=== PATIENT | female | born 1980 | race Caucasian/White ===

== ENCOUNTER 2017-10-24 23:50 | Emergency (ER) | payer MEDICAID, OTHER ==
[~2017-10-24] VITALS: Ht 157.5 cm; Wt 72.6 kg
[2017-10-25] MEDS ORDERED: metroNIDAZOLE 500 MG (FLAGYL) TAB PO STA (01:59)
[2017-10-25] MEDS ORDERED: AZITHROMYCIN 250 MG TAB (ZITHROMAX) PO STA (01:59)
[2017-10-25] MEDS ORDERED: RX-HYDROCODONE/APAP 5/325 MG #4 TAB PK PO PRN (02:00)
[2017-10-25] MEDS ORDERED: LIDOCAINE 1% INJ 20 ML (XYLOCAINE) VIAL INJ ONE (02:00)
[2017-10-25] MEDS ORDERED: cefTRIAXone 250 MG (ROCEPHIN) VIAL IM ONE (02:00)
--- NOTE | 2017-10-25 02:07 | ED GU-Female ---
General Chief Complaint: -Female Stated Complaint: ABD & PELVIC PAIN Nursing Triage Note: PT PRESENTS TO ER WITH COMPLAINT OF VAGINAL BURNING. STATES SHE HAS HAD HERPES SINCE SHE WAS 19. WAS SEEN AT [facility] ON FRIDAY. Nursing Sepsis Screen: No Definite Risk Source: patient Exam Limitations: no limitations History of Present Illness Date Seen by Provider: Oct 25, 2017 Time Seen by Provider: 01:50 Initial Comments Here with report of vaginal pain that has been going on for a few days. She was seen at the walk-in clinic yesterday and started on medications for possible herpes outbreak. She has had herpes since 19. She also admits to recently using Velez hair removal product and having sexual activity afterwards and thinks that she may have had some irritation from that. She reports foul- smelling discharge as well as labial swelling and pain. Reports pain with urination. Denies nausea or vomiting. She has been soaking in the bathtub or shower to help with urination. Timing/Duration: week, getting worse Severity/Quality: moderate, aching, burning Location: vaginal Radiation: none Activities at Onset: sexual activity Prior Genitourinary Problems: none Sexual [place] History: less than 2 months ago, single partner Modifying Factors: Worsens With Defecating, Worsens With Urinating Associated Symptoms: No abdominal pain, No fever/chills, No nausea/vomiting Allergies and Home Medications Allergies Coded Allergies: No Known Drug Allergies (Unverified , 10/25/17) Home Medications Cephalexin 500 Mg Tablet, 500 MG PO BID Prescribed by: JAYDEN REYES on 10/25/17222 Hydrocodone Bit/Acetaminophen 1 Tab Tab, 1-2 EACH PO Q6H PRN for PAIN-MODERATE Prescribed by: JAYDEN REYES on 10/25/17213 Metformin HCl 500 Mg Tablet, 500 MG PO BID Prescribed by: JAYDEN REYES on 10/25/17218 Metronidazole 500 Mg Tablet, 500 MG PO BID Prescribed by: JAYDEN REYES on 10/25/17213 Patient Home Medication List Home Medication List Reviewed: Yes Constitutional: see HPI, No chills, No fever Respiratory: no symptoms reported Cardiovascular: no symptoms reported Gastrointestinal: no symptoms reported Genitourinary: see HPI, burning, discharge, dysuria : No Musculoskeletal: no symptoms reported Skin: lesions, other (redness and swelling of vaginal area) Past Vooxalh-Eegpux-Pybemu Hx Patient Social History Alcohol Use: Occasionally Uses Recreational Drug Use: No Smoking Status: Never a Smoker Recent Foreign Travel: No Contact w/Someone Who Travel: No Recent Infectious Disease Expo: No Surgeries History of Surgeries: Yes Surgeries: Section Respiratory History of Respiratory Disorde: No Cardiovascular History of Cardiac Disorders: No Neurological History of Neurological Disord: No Genitourinary History of Genitourinary Disor: No Gastrointestinal History of Gastrointestinal Di: No Musculoskeletal History of Musculoskeletal Dis: No HEENT History of HEENT Disorders: No Reviewed Nursing Assessment Reviewed/Agree w Nursing PMH: Yes Family Medical History Significant Family History: No Pertinent Family Hx Physical Exam Vital Signs Vital Signs - First Documented 10/25/17 01:35 Temp 96.8 Pulse 106 Resp 20 B/P (MAP) 131/86 (101) Pulse Ox 98 O2 Delivery Room Air Capillary Refill : Less Than 3 Seconds General Appearance: WD/WN, no apparent distress HEENT: PERRL/EOMI, pharynx normal Neck: full range of motion, supple Cardiovascular: regular rate, rhythm, no murmur Respiratory: lungs clear, normal breath sounds Gastrointestinal: non tender, soft Pelvic: discharge, other (labial swollen bilateral but worse on the right. Foul-smelling discharge noted. They via red and inflamed and tender to the touch. Unable to perform further evaluation due to pain.) Neurologic/Psychiatric: alert, oriented x 3 Skin: warm/dry, other (perivaginal erythema) Progress/Results/Core Measures Suspected Sepsis Recent Fever Within 48 Hours: No Infection Criteria Present: None New/Unexplained Altered Menta: No Sepsis Screen: No Definite Risk Sepsis Diagnosis: SIRS Temperature:96.8 Pulse: 106 Respiratory Rate: 20 Blood Pressure 131 /86 Mean: 101 Results/Orders Lab Results Laboratory Tests Test 10/25/17 02:00 10/25/17 02:13 Range/Units Urine Color YELLOW Urine Clarity VERY CLOUDY H Urine pH 5 5-9 Urine Specific [place] 1.025 H 1.016-1.022 Urine Protein 2+ H NEGATIVE Urine Glucose (UA) 4+ H NEGATIVE Urine Ketones 4+ H NEGATIVE Urine Nitrite POSITIVE H NEGATIVE Urine Bilirubin NEGATIVE NEGATIVE Urine Urobilinogen NORMAL NORMAL MG/DL Urine Leukocyte Esterase 3+ H NEGATIVE Urine RBC (Auto) 5+ H NEGATIVE Urine RBC 10-25 H /HPF Urine WBC 50-100 H /HPF Urine Squamous Epithelial Cells 10-25 H /HPF Urine Crystals NONE /LPF Urine Bacteria MODERATE H /HPF Urine Casts NONE /LPF Urine Mucus NEGATIVE /LPF Urine Culture Indicated YES Glucometer 322 H 70-110 MG/DL My Orders Orders - JAYDEN REYES MD Alen Dna Urine Test (10/25/17 01:57) Chlamydia Dna (10/25/17 01:57) Rx-Hydrocodone/Apap 5-325 Mg (Rx-Vicodin (10/25/17 02:00) Ua Culture If Indicated (10/25/17 01:57) Ceftriaxone Injection (Rocephin Injectio (10/25/17 02:00) Azithromycin Tablet (Zithromax Tablet) (10/25/17 01:59) Metronidazole Tablet (Flagyl Tablet) (10/25/17 01:59) Lidocaine 1% Injection (Xylocaine 1% Inj (10/25/17 02:00) Lidocaine 1% (Xylocaine 1%) (10/25/17 02:14) Urine Culture (10/25/17 02:00) Medications Given in ED Current Medications Medications Dose Ordered Sig/[place] Route Start Time Stop Time Status Last Admin Dose Admin Acetaminophen/ Hydrocodone Bitart 1 ea Q4H PRN PO 10/25/17 02:00 10/25/17 02:23 1 EA Ceftriaxone Sodium 250 mg ONCE ONCE IM 10/25/17 02:00 10/25/17 02:02 DC 10/25/17 02:23 250 MG Lidocaine HCl 0.9 ml ONCE ONCE INJ 10/25/17 02:00 10/25/17 02:02 DC 10/25/17 02:23 0.9 ML Vital Signs/I&O Vital Sign - Last 12Hours 10/25/17 01:35 Temp 96.8 Pulse 106 Resp 20 B/P (MAP) 131/86 (101) Pulse Ox 98 O2 Delivery Room Air Capillary Refill : Less Than 3 Seconds Blood Pressure Mean: 101 Progress Note : Progress Note Seen and evaluated. UA with DNA screen for chlamydia and gonorrhea. Flagyl 500 mg by mouth, Zithromax 1 g by mouth and Rocephin 250 mg IM ordered. Go pack of hydrocodone ordered. We will continue outpatient Flagyl and prescription for hydrocodone. Departure Impression Impression: Primary Impression: Vaginitis Qualified Codes: N76.0 - Acute vaginitis Additional Impression: Urinary tract infection Qualified Codes: N30.00 - Acute cystitis without hematuria Disposition: 01 HOME, SELF-CARE Condition: Stable Departure-Patient Inst. Decision time for Depature: 02:11 Referrals: [facility] (PCP) Primary Care Physician NELSON COVARRUBIAS APRN (Family) Primary Care Physician Patient Instructions: Bacterial Vaginosis (DC), Vaginitis, Urinary Tract Infection, Adult (DC) Add. Discharge Instructions: All discharge instructions reviewed with patient and/or family. Voiced understanding. Take medications as directed. You may take ibuprofen 800 mg every 8 hours as needed for pain but do not exceed this dose. If you are not taking the prescribed pain medicine you may take acetaminophen 1000 mg every 8 hours but do not take both as both have acetaminophen in them. Do not exceed 4000 mg of acetaminophen in a 24-hour period. Follow-up with your Dr. in a few days for recheck. Return for worse pain, fever, vomiting, weakness, breathing problems or other concerns as needed. Scripts Cephalexin (Cephalexin) 500 Mg Tablet 500 MG PO BID, #10 TAB 0 Refills Prov: JAYDEN REYES MD 10/25/17 Metformin HCl (Metformin HCl) 500 Mg Tablet 500 MG PO BID, #60 TAB Prov: JAYDEN REYES MD 10/25/17 Metronidazole (Metronidazole) 500 Mg Tablet 500 MG PO BID, #14 TAB 0 Refills Prov: JAYDEN REYES MD 10/25/17 Hydrocodone Bit/Acetaminophen (Hydrocodone/Acetaminophen 5/325mg Tablet) 1 Tab Tab 1-2 EACH PO Q6H Y for PAIN-MODERATE, #15 TAB 0 Refills Prov: JAYDEN REYES MD 10/25/17 JAYDEN REYES MD Oct 25, 2017 02:07
[2017-10-25 02:13] LABS: BILIRUBIN,URINE NEGATIVE (NEGATIVE); CLARITY,URINE VERY CLOUDY; COLOR,URINE YELLOW; GLUCOSE, URINE (UA) 4+ (NEGATIVE); KETONES,URINE 4+ (NEGATIVE); LEUKOCYTE ESTERASE ,URINE 3+ (NEGATIVE); NITRITE,URINE POSITIVE (NEGATIVE); PH,URINE 5 (5-9); PROTEIN,URINE 2+ (NEGATIVE); UROBILINOGEN,URINE NORMAL (NORMAL)
[2017-10-25] MEDS ORDERED: ACHD5005 PO (02:14)
[2017-10-25] MEDS ORDERED: LIDOCAINE 1% INJ 50 ML (XYLOCAINE) VIAL ONE (02:14)
[2017-10-25] MEDS ORDERED: METR500T21 PO (02:14)
[2017-10-25] MEDS ORDERED: METF500T4 PO (02:19)
[2017-10-25 02:20] LABS: BACTERIA,URINE MODERATE /HPF; WBC,URINE 50-100 /HPF
[2017-10-25] MEDS ORDERED: CEPH500T PO (02:23)
[2017-10-25 02:48] VITALS: BP 131/86
== END 2017-10-25 02:48 | disposition home or self-care (01) ==
LOC: EDUNIT# 23:50 → ER 23:54
DX: N76.0 Acute vaginitis (principal); N39.0 Urinary tract infection, site not specified; Z87.59 Personal history of other complications of pregnancy, childbirth and the puerperium
CPT/HCPCS: 36415; 81000; 82962; 87088; 87186; 87491; 87591; 96372; 99284

== ENCOUNTER 2019-06-01 07:39 | Emergency (ER) | payer MEDICAID ==
[~2019-06-01] VITALS: Ht 152.4 cm; Wt 68.2 kg
[~2019-06-01 07:39] MED LIST: ACHD5005 PO; CEPH500T PO; METF-397 PO; METR-145 PO
--- NOTE | 2019-06-01 08:20 | NUR ---
CIRA WAS SEEN WALKING TO WATING ROOM PATIENT VOICED THAT SHE WAS GETTING SOMETHING TO DRINK INFORMED NOT TO DRINK TILL DR SAW HER. KEPT WALKING TO WATING ROOM WAS SEEN GOING TO POP MACHINE TO GET SOMETHING TO DRINK.
[2019-06-01] MEDS ORDERED: HYDROcodone/APAP 7.5 MG/325 MG (LORTAB, LORCET PLUS) TABLET PO STA (08:50)
--- NOTE | 2019-06-01 09:20 | ED GU-Female ---
General Chief Complaint: CERTIFIED HISTOLOGIC TECHNICIAN Stated Complaint: BROWN VAG DISCHARGE;ITCHING/BURNING Nursing Triage Note: AMB TO ROOM C/O VAG ITCHING ,DISCHARGE WITH PAINFUL BUMP . IS DOING SELF TX FOR YEAST INFECTION. Nursing Sepsis Screen: No Definite Risk Source: patient Exam Limitations: no limitations History of Present Illness Date Seen by Provider: Jun 01, 2019 Time Seen by Provider: 08:45 Initial Comments Here with report of vaginal swelling, itching and pain that has been going on for a couple of days. She thought this may be a yeast infection and did try the [id number] Monistat cream and has not had improvement. Sexual activity last weekend with no problems with tried a few days ago and it was painful. Reports that she has a fall but actually she is quite swollen overall. Does hurt with urination. Timing/Duration: getting worse, other (to 3 days) Severity/Quality: moderate, severe, aching, burning Location: vaginal Radiation: none Activities at Onset: none Sexual [place] History: less than 2 months ago, single partner Modifying Factors: Worsens With Urinating Associated Symptoms: dysuria; No fever/chills, No nausea/vomiting Allergies and Home Medications Allergies Coded Allergies: No Known Drug Allergies (Unverified , 10/25/17) Home Medications Metformin HCl 500 Mg Tablet, 500 MG PO BID Prescribed by: JAYDEN REYES on 10/25/17218 Metronidazole 500 Mg Tablet, 500 MG PO BID Prescribed by: JAYDEN REYES on 10/25/17213 Patient Home Medication List Home Medication List Reviewed: Yes Review of Systems Review of Systems Constitutional: see HPI; No chills, No fever EENTM: no symptoms reported Respiratory: no symptoms reported Cardiovascular: no symptoms reported Gastrointestinal: No abdominal pain, No nausea, No vomiting Genitourinary: discharge, dysuria, pain Skin: change in color Psychiatric/Neurological: No Symptoms Reported All Other Systemes Reviewed Negative Unless Noted: Yes Past Exmeogu-Jtncwi-Qpdmao Hx Past Med/Social Hx: Reviewed Nursing Past Med/Soc Hx Patient Social History Alcohol Use: Denies Use Recreational Drug Use: No Drug of Choice: MARIJUANA Smoking Status: Current Everyday Smoker Recent Foreign Travel: No Contact w/Someone Who Travel: No Recent Infectious Disease Expo: No Recent Hopitalizations: No Immunizations Up To Date PED Vaccines UTD: Yes Seasonal Allergies Seasonal Allergies: No Past Medical History Surgeries: Yes Section Respiratory: No Cardiac: No Neurological: No Sexually Transmitted Disease: Yes Genitourinary: No Gastrointestinal: No Musculoskeletal: No Endocrine: Yes Diabetes, Non-Insulin dep HEENT: No Cancer: No Psychosocial: No Integumentary: No Blood Disorders: No Family Medical History Reviewed Nursing Family Hx No Pertinent Family Hx Physical Exam Vital Signs Vital Signs - First Documented 06/01/19 07:39 Temp 36.0 Pulse 95 Resp 18 B/P (MAP) 142/100 (114) Pulse Ox 98 O2 Delivery Room Air Capillary Refill : Less Than 3 Seconds Height, Weight, BMI Height: 5'2.00" Weight: 160lbs. oz. 72.293473cm; 29.00 BMI Method:Stated General Appearance: WD/WN, no apparent distress Cardiovascular: regular rate, rhythm, no murmur Respiratory: lungs clear, normal breath sounds Gastrointestinal: non tender, soft Pelvic: discharge, other (labia moderately swollen bilaterally with white/naylor discharge and very tender to any touch. Unable to do a pelvic exam due to pain.) Extremities: non-tender, normal inspection Neurologic/Psychiatric: alert, oriented x 3 Skin: warm/dry, other (some perivaginal erythema) Progress/Results/Core Measures Suspected Sepsis Recent Fever Within 48 Hours: No Infection Criteria Present: None New/Unexplained Altered Menta: No Sepsis Screen: No Definite Risk SIRS Temperature: Pulse: 95 Respiratory Rate: 18 Blood Pressure 142 /100 Mean: 114 Results/Orders Lab Results Laboratory Tests Test 06/01/19 08:40 Range/Units Micro Results Microbiology 06/01/19 Genital Culture, Resulted Pending 06/01/19 Wet Prep - Final, Resulted My Orders Orders - JAYDEN REYES MD Wet Prep (06/01/19 08:50) Neisseria Gonorrhea Swab (06/01/19 08:50) Genital Culture (06/01/19 08:50) Chlamydia Trachomatis Swab (06/01/19 08:50) Ua Culture If Indicated (06/01/19 08:50) Urine Bedside (06/01/19 08:50) Hydrocodone/Apap 7.5/325 Tab (Lortab 7. (06/01/19 08:50) Ketorolac Injection (Toradol Injection) (06/01/19 09:40) Vital Signs/I&O 06/01/19 07:39 Temp 36.0 Pulse 95 Resp 18 B/P (MAP) 142/100 (114) Pulse Ox 98 O2 Delivery Room Air Capillary Refill : Less Than 3 Seconds 2 Blood Pressure Mean: 114 POS Progress Note : Progress Note Seen and evaluated. Pelvic exam declined due to pain. UA ordered. We did get vaginal swabs from the outer vaginal area. Hydrocodone 7.5/325 one tab by mouth given. Monitor patient. Toradol 60 mg IM given. 1015: States that it valles when she urinates and she usually urinates in the shower. She does not want to give urine sample because of the pain that she is doing better now. Based on her previous presentation very similar to this, we will go ahead and prescribe similar medications with the understanding that the patient will need to come back if she is worse at all. I did let her know that this limits my evaluation of her without having the UA study and she verbalizes understanding. She also verbalized that she will come back if there is any worsening at all due to the lack of complete evaluation currently and she does not want to urinate. Discharged home with return precautions. Patient verbalize understanding instructions and agreement with plan. Departure Impression Primary Impression: Vaginitis Qualified Codes: N76.0 - Acute vaginitis Disposition: 01 HOME, SELF-CARE Condition: Stable Departure-Patient Inst. Decision time for Depature: 10:19 [facility]errals: [facility] Primary Care Physician NELSON COVARRUBIAS APRN (Family) Primary Care Physician Patient Instructions: Vaginitis Add. Discharge Instructions: All discharge instructions reviewed with patient and/or family. Voiced understanding. You may take ibuprofen 600 mg every 8 hours as needed for pain. Take other medications as prescribed. If you're not taking the prescribed pain medicine then he may take Tylenol/acetaminophen 1000 mg every 8 hours as needed for pain. Do not take at the same time as the prescribed pain medicine as they both have acetaminophen in them. Follow up with your doctor for recheck and further evaluation and care management coordinator for your prescription needs for your diabetes. Return for worse pain, fever, vomiting, weakness, breathing problems or other concerns as needed. Scripts Metronidazole (Metronidazole) 500 Mg Tablet 500 MG PO BID, #14 TAB 0 Refills Prov: JAYDEN REYES MD 06/01/19 Hydrocodone Bit/Acetaminophen (Hydrocodone/Acetaminophen 5/325mg Tablet) 1 Tab Tab 1-2 EACH PO Q6H PRN for PAIN-MODERATE MDD 10 for 3 Days, #12 TAB 0 Refills Prov: JAYDEN REYES MD 06/01/19 Cephalexin (Cephalexin) 500 Mg Tablet 500 MG PO BID, #14 TAB 0 Refills Prov: JAYDEN REYES MD 06/01/19 JAYDEN REYES MD Jun 01, 2019 09:20 POS
--- NOTE | 2019-06-01 09:39 | NUR ---
TO ROOM REFUSES TO DO UA STATES PAIN MEDS NOT HELPING.
[2019-06-01] MEDS ORDERED: KETOROLAC 60 MG/2 ML VIAL IM STA (09:40)
--- NOTE | 2019-06-01 09:40 | NUR ---
DR REYES INFORMED PATIENT STILL HAVING PAIN. WILL ORDER IM.
[2019-06-01 10:21] VITALS: BP 140/100
[2019-06-01] MEDS ORDERED: CEPH500T PO (10:21)
[2019-06-01] MEDS ORDERED: ACHD5005 PO (10:21)
[2019-06-01] MEDS ORDERED: METR-145 PO (10:21)
== END 2019-06-01 10:21 | disposition home or self-care (01) ==
LOC: EDUNIT# 07:39 → ER 07:41
DX: N76.0 Acute vaginitis (principal); E11.9 Type 2 diabetes mellitus without complications; F17.200 Nicotine dependence, unspecified, uncomplicated; Z79.84 Long term (current) use of oral hypoglycemic drugs
CPT/HCPCS: 36415; 87070; 87205; 87210; 87491; 87591; 99284